=== PATIENT | female | born 1985 | race Caucasian/White ===

== ENCOUNTER 2018-05-18 16:30 | Inpatient (IN) | payer OTHER ==
[~2018-05-18 16:30] MED LIST: OXYTOCIN 30 UNITS/LR 500 ML BAG IV
[2018-05-18] MEDS ORDERED: OXYTOCIN 30 UNITS/LR 500 ML IV (18:00)
[2018-05-18] MEDS ORDERED: MISOPROSTOL 200 MCG TAB PR ×2 (18:00→20:00)
[2018-05-18] MEDS ORDERED: CARBOPROST 250 MCG INJ IM (18:00)
[2018-05-18 18:42] LABS: ADD MAN DIFF? NO
[2018-05-18 18:44] LABS: BASOPHILS % 0.1 % (0.0-2.0); EOSINOPHILS # 0.1 10^3/ul (0.0-0.5); EOSINOPHILS % 0.9 % (0.0-7.0); HEMATOCRIT 36.1 % (37.0-47.0); HEMOGLOBIN 11.9 g/dl (12.0-16.0); LYMPHOCYTES # 0.7 10^3/ul (0.8-2.9); LYMPHOCYTES % 9.7 % (15.0-51.0); MEAN CORPUSCULAR VOLUME 87.8 fl (82.0-101.0); MEAN PLATELET VOLUME 11.5 fl (7.4-10.4); MONOCYTE # 0.4 10^3/ul (0.3-0.9); MONOCYTES % 5.1 % (0.0-11.0); NEUTROPHIL # 6.3 10^3/ul (1.6-7.5); NEUTROPHILS % 83.9 % (39.0-77.0); PLATELET COUNT 192 10^3/UL (140-415); RED BLOOD COUNT 4.11 10^6/ul (4.20-5.40); RED CELL DISTRIBUTION WIDTH 13.8 % (11.5-14.5)
[2018-05-18 18:44] LABS: WHITE BLOOD COUNT 7.5 10^3/ul (4.8-10.8)
[2018-05-18] MEDS: LACTATED RINGER'S 1,000 ML IV (19:02)
[2018-05-18 19:03] LABS: PROTIME 12.2 Sec (11.9-14.9)
[2018-05-18 19:04] LABS: PARTIAL THROMBOPLASTIN TIME 30.2 Sec (23.0-35.0)
[2018-05-18] MEDS: CITRIC ACID/NA CITRATE 30 ML CUP PO (19:39)
[2018-05-18] MEDS: ONDANSETRON 4 MG INJ IV (19:40)
[2018-05-18] MEDS ORDERED: PHENYLephrine (100 MCG/ML) 10ML SYG ×2 (19:49→19:59)
[2018-05-18] MEDS ORDERED: METOCLOPRAMIDE 10 MG INJ (19:50)
[2018-05-18] MEDS ORDERED: OXYTOCIN 10 UNIT INJ ×2 (19:50→20:21)
[2018-05-18] MEDS ORDERED: morphine SULFATE/PF (10 MG/10 ML) INJ (19:50)
[2018-05-18] MEDS ORDERED: DEXAMETHASONE 4 MG/ML 1 ML INJ (19:50)
[2018-05-18] MEDS ORDERED: KETOROLAC 30 MG INJ (19:50)
[2018-05-18] MEDS ORDERED: OXYCODONE/ACETAMINOPHEN (5/325) TAB PO (20:00)
[2018-05-18] MEDS ORDERED: NA PHOSPHATE/BIPHOS 133 ML ENEMA PR (20:00)
[2018-05-18] MEDS ORDERED: LANOLIN HPA 1 PKT TOP (20:00)
[2018-05-18] MEDS: SENNA/DOCUSATE NA (8.6MG/50MG) TAB PO (21:00)
[2018-05-18 21:12] LABS: AMPHETAMINE/METHAMPHETAMINE NEGATIVE (NEGATIVE); BARBITURATES NEGATIVE (NEGATIVE); BENZODIAZEPINES NEGATIVE (NEGATIVE); CANNABINOIDS NEGATIVE (NEGATIVE); COCAINE NEGATIVE (NEGATIVE); OPIATES NEGATIVE (NEGATIVE)
[2018-05-18 21:17] LABS: HEPATITIS B SURFACE ANTIGEN NEGATIVE (NEGATIVE)
[2018-05-18] MEDS ORDERED: EPHEDrine SULFATE 50 MG/5 ML SYG IV (21:30)
[2018-05-18] MEDS ORDERED: ONDANSETRON 4 MG INJ IV ×2 (21:30)
[2018-05-18] MEDS ORDERED: NALOXONE (0.4 MG/ML) INJ IV (21:30)
[2018-05-18] MEDS ORDERED: HYDROmorphONE 1 MG/5 ML IV SYRINGE IV ×2 (21:30)
[2018-05-18] MEDS ORDERED: FENTAnyl 50 MCG/ML VIAL IV ×2 (21:30)
[2018-05-18] MEDS ORDERED: METOCLOPRAMIDE 10 MG INJ IV (21:30)
[2018-05-18] MEDS ORDERED: NALBUPHINE HCL (10 MG/1 ML) INJ IV (21:30)
[2018-05-18] MEDS ORDERED: ACETAMINOPHEN 500 MG TAB PO (21:30)
[2018-05-18] MEDS ORDERED: HYDROmorphONE 0.5 MG/0.5 ML SYG IV ×2 (21:30)
[2018-05-18] MEDS ORDERED: HYDROCODONE/APAP (5/325) TAB PO (21:30)
[2018-05-18] MEDS ORDERED: MEPERIDINE 25 MG INJ IV (21:30)
[2018-05-18] MEDS ORDERED: morphine 2 MG INJ IV ×2 (21:30)
[2018-05-18] MEDS ORDERED: DIPHENHYDRAMINE 50 MG INJ IV (21:30)
[2018-05-18] MEDS: OXYTOCIN 30 UNITS/LR 500 ML IV (21:42)
[2018-05-18] MEDS: METHYLERGONOVINE 0.2 MG INJ IM (22:02)
[2018-05-18] MEDS: CEFAZOLIN 3 GM in DEXTROSE 5% 100 ML IV (22:02)
[2018-05-18] MEDS: DIPHENHYDRAMINE 50 MG INJ IV (22:48)
[2018-05-19] MEDS ORDERED: ALBUTEROL HFA 8 GM INHALER INH (01:00)
[2018-05-19] MEDS: OXYTOCIN 30 UNITS/LR 500 ML IV (01:32)
[2018-05-19] MEDS: CEFAZOLIN 2 GM/50 ML (PMX) 50 ML IVPB ×4 (03:31→22:00)
[2018-05-19] MEDS: IBUPROFEN 600 MG TAB PO ×4 (06:00→18:00)
[2018-05-19] MEDS: LACTATED RINGER'S 1,000 ML IV (06:16)
[2018-05-19 08:21] LABS: ADD MAN DIFF? NO
[2018-05-19 08:35] LABS: ABNORMAL IP MESSAGE 1; BASOPHILS % 0.1 % (0.0-2.0); EOSINOPHILS % 0.2 % (0.0-7.0); HEMATOCRIT 29.9 % (37.0-47.0); HEMOGLOBIN 9.8 g/dl (12.0-16.0); LYMPHOCYTES # 0.6 10^3/ul (0.8-2.9); LYMPHOCYTES % 5.9 % (15.0-51.0); MEAN CORPUSCULAR HEMOGLOBIN 29.1 pg (29.0-33.0); MEAN CORPUSCULAR HGB CONC 32.8 g/dl (32.0-37.0); MEAN CORPUSCULAR VOLUME 88.7 fl (82.0-101.0); MEAN PLATELET VOLUME 11.9 fl (7.4-10.4); MONOCYTE # 0.4 10^3/ul (0.3-0.9); MONOCYTES % 3.8 % (0.0-11.0); NEUTROPHIL # 8.8 10^3/ul (1.6-7.5); NEUTROPHILS % 89.7 % (39.0-77.0); PLATELET COUNT 199 10^3/UL (140-415); RED BLOOD COUNT 3.37 10^6/ul (4.20-5.40); RED CELL DISTRIBUTION WIDTH 13.7 % (11.5-14.5)
[2018-05-19 08:35] LABS: WHITE BLOOD COUNT 9.8 10^3/ul (4.8-10.8)
[2018-05-19 08:39] LABS: POSITIVE DIFF @See below
[2018-05-19] MEDS: SENNA/DOCUSATE NA (8.6MG/50MG) TAB PO ×2 (09:00→21:00)
[2018-05-19] MEDS: INFLUENZA VIRUS VACCINE 0.5 ML (DISPENSING) IM* (10:00)
[2018-05-19] MEDS: ENOXAPARIN 40 MG/0.4 ML SYG SC ×2 (11:13→21:58)
[2018-05-19 15:35] LABS: RAPID PLASMA REAGIN NONREACTIVE (NR)
[2018-05-19] MEDS: KETOROLAC 30 MG INJ IV (15:45)
[2018-05-19] MEDS: OXYCODONE/ACETAMINOPHEN (5/325) TAB PO (21:58)
[2018-05-20] MEDS: IBUPROFEN 600 MG TAB PO ×4 (00:01→17:38)
[2018-05-20] MEDS: SENNA/DOCUSATE NA (8.6MG/50MG) TAB PO ×2 (09:16→21:34)
[2018-05-20] MEDS: OXYCODONE/ACETAMINOPHEN (5/325) TAB PO ×2 (09:18→22:42)
[2018-05-20] MEDS: ENOXAPARIN 40 MG/0.4 ML SYG SC ×2 (09:18→21:33)
[2018-05-21] MEDS: IBUPROFEN 600 MG TAB PO ×3 (00:09→11:30)
[2018-05-21] MEDS: SENNA/DOCUSATE NA (8.6MG/50MG) TAB PO (09:07)
[2018-05-21] MEDS: ENOXAPARIN 40 MG/0.4 ML SYG SC (09:08)
[2018-05-21] MEDS: MEASLES,MUMPS,RUBELLA VACCINE INJ SC* (09:09)
[2018-05-21] MEDS: DIPHTH/TET/ACEL PERTUSS (ADULT) 0.5 ML VIAL IM* (09:09)
== END 2018-05-21 16:31 | disposition home or self-care (01) | DRG 785 ==
LOC: L-D 16:30 → PP1 05-19 00:10 → L-D 19:49
PROC: 10D00Z1 Extraction of Products of Conception, Low, Open Approach (ICD-10-PCS; principal; 2018-05-18 19:30)
PROC: 0UB70ZZ Excision of Bilateral Fallopian Tubes, Open Approach (ICD-10-PCS; 2018-05-18 19:30)
PROC: 4A1HXCZ Monitoring of Products of Conception, Cardiac Rate, External Approach (ICD-10-PCS; 2018-05-18 19:30)
DX: O34.219 Maternal care for unspecified type scar from previous cesarean delivery (principal); O99.214 Obesity complicating childbirth; E66.01 Morbid (severe) obesity due to excess calories; Z3A.39 39 weeks gestation of pregnancy; Z37.0 Single live birth; O34.83 Maternal care for other abnormalities of pelvic organs, third trimester; N83.8 Other noninflammatory disorders of ovary, fallopian tube and broad ligament; Z30.2 Encounter for sterilization
CPT/HCPCS: 80307; 85025; 85610; 85730; 86592; 86850; 86900; 86901; 87340; 88305; 90686; 99464